=== PATIENT | male | born 1965 | race Caucasian/White ===

== ENCOUNTER 2019-07-29 11:13 | Emergency (ER) | payer MEDICAID, OTHER ==
[~2019-07-29] VITALS: Ht 167.6 cm; Wt 61.8 kg
[~2019-07-29 11:13] MED LIST: ESOM40CA PO; NO HOME MEDS
[2019-07-29] MEDS ORDERED: TETanus/Pertussis (Acell)/Diphther VAC/PF (Tdap-Adult) 0.5ml syringe IMVAC ONE (12:45)
== END 2019-07-29 13:42 | disposition home or self-care (01) ==
LOC: ER 11:13
DX: S71.112A Laceration without foreign body, left thigh, initial encounter (principal); I10 Essential (primary) hypertension; Z90.49 Acquired absence of other specified parts of digestive tract; Z79.899 Other long term (current) drug therapy; W26.8XXA Contact with other sharp object(s), not elsewhere classified, initial encounter; Y93.89 Activity, other specified; Y92.89 Other specified places as the place of occurrence of the external cause; Y99.8 Other external cause status
CPT/HCPCS: 12002; 90471; 90715; 99283

== ENCOUNTER 2020-10-16 11:34 | Emergency (ER) | payer OTHER ==
[~2020-10-16] VITALS: Ht 167.6 cm; Wt 61.4 kg
[2020-10-16] MEDS ORDERED: LORazepam 2 mg/ml vial IV ONE (11:50)
[2020-10-16 12:03] LABS: BASOPHILS # (AUTO) 0.1 X10'3 (0-0.2); BASOPHILS % (AUTO) 0.6 % (0-1); EOSINOPHILS # (AUTO) 0.2 X10'3 (0-0.9); EOSINOPHILS % (AUTO) 2.5 % (0-6); HEMATOCRIT 44.1 % (42.0-52.0); HEMOGLOBIN 15.4 g/dl (14.0-17.9); LYMPHOCYTES # (AUTO) 2.8 X10'3 (1.1-4.8); LYMPHOCYTES % (AUTO) 29.2 % (21-51); MEAN CORPUSCULAR HEMOGLOBIN 31.8 PG (27.0-31.0); MEAN CORPUSCULAR VOLUME 90.8 FL (78-98); MEAN PLATELET VOLUME 6.8 FL (7.4-10.4); MONOCYTES # (AUTO) 1.1 X10'3 (0-0.9); MONOCYTES % (AUTO) 11.4 % (2-12); NEUTROPHILS # (AUTO) 5.4 X10'3 (1.8-7.7); NEUTROPHILS % (AUTO) 56.3 % (42-75); PLATELET COUNT 282 X10'3 (140-440); RED BLOOD COUNT 4.85 X10'6 (4.70-6.10); RED CELL DISTRIBUTION WIDTH 14.1 % (11.5-14.5); WHITE BLOOD COUNT 9.5 X10'3 (4.5-11.0)
[2020-10-16] MEDS ORDERED: nitroGLYCERIN 0.4mg SUBLingual tab SL PRN ×2 (12:15→14:00)
[2020-10-16] MEDS ORDERED: aspirin 325mg tablet PO ONE (12:15)
[2020-10-16 12:18] LABS: ALANINE AMINOTRANSFERASE 23 U/L (12-78); ALBUMIN 3.9 G/DL (3.4-5.0); ALBUMIN/GLOBULIN RATIO 1.1 (1.1-1.5); ALKALINE PHOSPHATASE 81 IU/L (46-116); ANION GAP 10 (8-16); ASPARTATE AMINO TRANSFERASE 27 U/L (10-37); BILIRUBIN,TOTAL 0.4 MG/DL (0.1-1.0); BLOOD UREA NITROGEN 19 MG/DL (7-18); CHLORIDE 104 MMOL/L (99-107); CREATININE 1.12 MG/DL (0.60-1.10); GLUCOSE 90 MG/DL (70-104); SODIUM 140 MMOL/L (135-145); TOTAL CARBON DIOXIDE 25.7 MMOL/L (24-32); TOTAL PROTEIN 7.5 G/DL (6.4-8.2); eGFR 69 ML/MIN
[2020-10-16 13:56] VITALS: BP 148/85
[2020-10-16] MEDS ORDERED: acetaminophen 325mg tablet PO PRN ×2 (14:00)
[2020-10-16] MEDS ORDERED: morphine 2 MG/ML inj. syringe IV PRN ×2 (14:00)
[2020-10-16] MEDS ORDERED: magnesium hydroxide 30ml (MOM) UD suspension PO PRN (14:00)
[2020-10-16] MEDS ORDERED: ondansetron/PF 4mg/2ml inj IV PRN (14:00)
[2020-10-16] MEDS ORDERED: mag hydrox/Alum hydrox/simeth 30ml oral suspension PO PRN (14:00)
[2020-10-16] MEDS ORDERED: metoprolol tartrate 25mg tablet PO SCH (20:00)
[2020-10-17] MEDS ORDERED: aspirin 81mg tablet.DR PO SCH (08:00)
== END 2020-10-16 14:25 | disposition left against medical advice (07) ==
LOC: ER 11:35 → UNDOADMOB 13:56 → ED HOLD 13:56 → UNDODISOB 14:25 → ER 14:25
DX: R07.89 Other chest pain (principal); M79.601 Pain in right arm; F17.200 Nicotine dependence, unspecified, uncomplicated; Z90.49 Acquired absence of other specified parts of digestive tract; Z72.89 Other problems related to lifestyle; Z88.1 Allergy status to other antibiotic agents
CPT/HCPCS: 36415; 71045; 80053; 83880; 84484; 85025; 93005; 99285; G0378

== ENCOUNTER 2021-04-24 11:19 | Emergency (ER) | payer MEDICAID ==
[~2021-04-24] VITALS: Ht 165.1 cm; Wt 65.9 kg
[~2021-04-24 11:19] MED LIST changes: +ASPI-611 PO; +CLOP75TA34 OGT; +COR3.125T PO; -ESOM40CA PO; +LISI10TA27 PO; +NITR0.4T51 SL; -NO HOME MEDS; +NOR5T OGT
[2021-04-24 12:06] LABS: BASOPHILS % (AUTO) 0.5 % (0-1); EOSINOPHILS # (AUTO) 0.3 X10'3 (0-0.9); EOSINOPHILS % (AUTO) 3.9 % (0-6); HEMATOCRIT 40.9 % (42.0-52.0); HEMOGLOBIN 14.6 g/dl (14.0-17.9); LYMPHOCYTES # (AUTO) 2.6 X10'3 (1.1-4.8); LYMPHOCYTES % (AUTO) 38.3 % (21-51); MEAN CORPUSCULAR HEMOGLOBIN 32.1 PG (27.0-31.0); MEAN CORPUSCULAR HGB CONC 35.6 g/dL (33.0-36.5); MEAN CORPUSCULAR VOLUME 90.1 FL (78-98); MEAN PLATELET VOLUME 6.6 FL (7.4-10.4); MONOCYTES % (AUTO) 14.7 % (2-12); NEUTROPHILS # (AUTO) 2.9 X10'3 (1.8-7.7); NEUTROPHILS % (AUTO) 42.6 % (42-75); PLATELET COUNT 308 X10'3 (140-440); RED BLOOD COUNT 4.54 X10'6 (4.70-6.10); RED CELL DISTRIBUTION WIDTH 13.4 % (11.5-14.5); WHITE BLOOD COUNT 6.7 X10'3 (4.5-11.0)
[2021-04-24 12:17] LABS: ALANINE AMINOTRANSFERASE 30 U/L (12-78); ALBUMIN 4.2 G/DL (3.4-5.0); ALBUMIN/GLOBULIN RATIO 1.2 (1.1-1.5); ALKALINE PHOSPHATASE 69 IU/L (46-116); ANION GAP 10 (8-16); ASPARTATE AMINO TRANSFERASE 20 U/L (10-37); BILIRUBIN,TOTAL 0.6 MG/DL (0.1-1.0); BLOOD UREA NITROGEN 23 MG/DL (7-18); BUN/CREATININE RATIO 20.5 (5.4-32.0); CALCIUM 9.2 MG/DL (8.5-10.1); CHLORIDE 103 MMOL/L (99-107); CREATININE 1.12 MG/DL (0.60-1.10); GLUCOSE 92 MG/DL (70-104); POTASSIUM 4.8 MMOL/L (3.5-5.1); SODIUM 140 MMOL/L (135-145); TOTAL PROTEIN 7.7 G/DL (6.4-8.2); eGFR 68 ML/MIN
[2021-04-24 15:30] LABS: CLARITY,URINE CLEAR (Clear); COLOR,URINE YELLOW (Yellow); GLUCOSE, URINE NEGATIVE (Neg); KETONES,URINE NEGATIVE (Neg); LEUKOCYTE ESTERASE ,URINE NEGATIVE (Neg); NITRITES, URINE NEGATIVE (Neg); PH,URINE 5.5 (4.8-8.0); PROTEIN,URINE NEGATIVE (Neg); UROBILINOGEN,URINE 0.2 E.U/dL (0.2-1.0)
[2021-04-24 15:35] LABS: OCCULT BLOOD,URINE TRACE-LYSED (Neg)
[2021-04-24 15:43] LABS: UA COLLECTION TYPE STRAIGHT CATH
[2021-04-24 15:48] VITALS: BP 137/90
[2021-04-24 15:51] LABS: BACTERIA,URINE FEW /HPF (Neg); RBC,URINE 0-2 /HPF (0-2); SQUAMOUS EPITHELIAL CELL,UR FEW /LPF (FEW); WBC,URINE 0-4 /HPF (0-4)
[2021-04-26] MEDS ORDERED: LIDOcaine 1% W/epiNEPHrine 1:100,000 20ml vial IJ ONE (12:20)
[2021-04-26] MEDS ORDERED: TETanus/Pertussis (Acell)/Diphther VAC/PF (Tdap-Adult) 0.5ml syringe IMVAC ONE (12:20)
== END 2021-04-24 15:49 | disposition home or self-care (01) ==
LOC: ER 11:20
DX: R07.89 Other chest pain (principal); I10 Essential (primary) hypertension; M79.601 Pain in right arm; M54.2 Cervicalgia; I25.10 Atherosclerotic heart disease of native coronary artery without angina pectoris; I25.2 Old myocardial infarction; F17.200 Nicotine dependence, unspecified, uncomplicated; Z90.49 Acquired absence of other specified parts of digestive tract; Z98.890 Other specified postprocedural states; Z72.89 Other problems related to lifestyle; Z79.82 Long term (current) use of aspirin; Z79.899 Other long term (current) drug therapy
CPT/HCPCS: 36415; 71045; 80053; 81001; 83880; 84484; 85025; 93005; 99285

== ENCOUNTER 2023-08-24 10:34 | Outpatient (CLI) | payer BC, OTHER ==
[~2023-08-24] VITALS: Ht 162.6 cm; Wt 66.7 kg
[~2023-08-24 10:34] MED LIST changes: +ATOR20TA66 PO
[2023-08-24 10:56] LABS: ABG BASE EXCESS -3.1 mmol/L (-2.0-2.0); ABG HCO3 20.4 mmol/L (22.0-26.0); ABG PCO2 (T) 32.4 mmHg (35.0-48.0); ABG PH (T) 7.418 (7.340-7.440); ABG PO2 (T) 94.6 mmHg (75.0-100.0); ALLEN'S TEST POSITIVE; FCOHb 0.1 % (0.0-3.9); FMetHb 0.1 % (0.0-1.5); FO2Hb 96.8 % (94-97); MODE ROOM AIR; TOTAL HEMOGLOBIN 14.3 G/dl (14.0-17.9)
[2023-08-24] MEDS: albuterol 2.5 MG/3 ML nebule NEB ONE (11:32)
[2023-08-24 11:39] VITALS: PULSE 65; RESP 16; O2SAT 97
== END 2023-08-24 23:59 | disposition home or self-care (01) ==
LOC: RT 10:34
PROVIDERS: ATTEND Internal Medicine Cardiovascular Disease
DX: J44.9 Chronic obstructive pulmonary disease, unspecified (principal); R94.2 Abnormal results of pulmonary function studies; R05.9 Cough, unspecified; R06.02 Shortness of breath
CPT/HCPCS: 36600; 82803; 85018; 94060; 94727; 94729; 94760

== ENCOUNTER 2024-03-11 08:18 | Inpatient (IN) | payer BC ==
[2024-03-11] VITALS (9 sets, daily range): BP systolic 128–179; BP diastolic 59–94; PULSE 61–89; RESP 13–20; TEMP 96.6–97; O2SAT 96–100
[~2024-03-11] VITALS: Ht 167.6 cm; Wt 64.0 kg
[2024-03-11] MEDS: aspirin 81mg tab.chew PO ONE (08:58)
[2024-03-11] MEDS: morphine 2 MG/ML inj. syringe IV ONE (09:00)
[2024-03-11 09:08] LABS: BASOPHILS % (AUTO) 0.5 % (0-1); EOSINOPHILS # (AUTO) 0.2 X10'3 (0-0.9); EOSINOPHILS % (AUTO) 2.6 % (0-6); HEMATOCRIT 40.2 % (42.0-52.0); HEMOGLOBIN 13.7 g/dl (14.0-17.9); LYMPHOCYTES % (AUTO) 23.1 % (21-51); MEAN CORPUSCULAR HEMOGLOBIN 30.9 PG (27.0-31.0); MEAN CORPUSCULAR HGB CONC 34.1 g/dL (33.0-36.5); MEAN CORPUSCULAR VOLUME 90.7 FL (78-98); MEAN PLATELET VOLUME 7.3 FL (7.4-10.4); MONOCYTES # (AUTO) 1.2 X10'3 (0-0.9); MONOCYTES % (AUTO) 13.9 % (2-12); NEUTROPHILS # (AUTO) 5.2 X10'3 (1.8-7.7); NEUTROPHILS % (AUTO) 59.9 % (42-75); PLATELET COUNT 293 X10'3 (140-440); RED BLOOD COUNT 4.43 X10'6 (4.70-6.10); RED CELL DISTRIBUTION WIDTH 14.2 % (11.5-14.5); WHITE BLOOD COUNT 8.6 X10'3 (4.5-11.0)
[2024-03-11 09:27] LABS: ALANINE AMINOTRANSFERASE 24 U/L (12-78); ALBUMIN 3.8 G/DL (3.4-5.0); ALKALINE PHOSPHATASE 49 IU/L (46-116); ANION GAP 10 (8-16); ASPARTATE AMINO TRANSFERASE 27 U/L (10-37); BILIRUBIN,TOTAL 0.4 MG/DL (0.1-1.0); BLOOD UREA NITROGEN 25 MG/DL (7-18); BUN/CREATININE RATIO 16.9 (10.0-20.0); CALCIUM 9.2 MG/DL (8.5-10.1); CHLORIDE 104 MMOL/L (99-107); CREATININE 1.48 MG/DL (0.60-1.10); GLUCOSE 106 MG/DL (70-104); POTASSIUM 4.2 MMOL/L (3.5-5.1); SODIUM 136 MMOL/L (135-145); TOTAL CARBON DIOXIDE 21.9 MMOL/L (24-32); TOTAL PROTEIN 7.7 G/DL (6.4-8.2); eCRCL 50 ML/MIN; eGFR 49 ML/MIN
[2024-03-11 09:35] LABS: PRO BRAIN NATRIURETIC PEPTIDE 1610 PG/ML (0-125)
[2024-03-11] MEDS: nitroGLYCERIN 0.4mg SUBLingual tab SL PRN (10:08)
[2024-03-11] MEDS: morphine 4 MG/ML inj SYRINge IV ONE (10:46)
[2024-03-11] MEDS ORDERED: morphine 2 MG/ML inj. syringe IV PRN ×2 (11:00)
[2024-03-11] MEDS ORDERED: magnesium sulf-water 4G/100mL 100 ML IV PRN (11:00)
[2024-03-11] MEDS ORDERED: magnesium Cl slow-release 64mg tablet PO PRN (11:00)
[2024-03-11] MEDS ORDERED: potassium Cl 20 mEq SR tablet PO PRN ×2 (11:00)
[2024-03-11] MEDS ORDERED: ondansetron/PF 4mg/2ml inj IV PRN (11:00)
[2024-03-11] MEDS ORDERED: acetaminophen 325mg tablet PO PRN ×2 (11:00)
[2024-03-11] MEDS ORDERED: potassium Cl 40MEQ/1/2NS 520ml 520 ML IV PRN (11:00)
[2024-03-11] MEDS ORDERED: magnesium sulf-water 2g/50mL 50 ML IV PRN (11:00)
[2024-03-11] MEDS: normal saline 1000ml 1,000 ML IV SCH (11:14)
[2024-03-11] MEDS ORDERED: aminophylline inj. 0 ML IV ONE (13:30)
[2024-03-11] MEDS: regadenoson 0.4mg/5ml syringe IV ONE (13:32)
[2024-03-11] MEDS ORDERED: LISI20TA28 PO (17:20)
[2024-03-11] MEDS ORDERED: CARV6.253 PO (17:20)
[2024-03-11] MEDS ORDERED: DOCU-148 PO (17:24)
[2024-03-11] MEDS ORDERED: FISH1CAP15 PO (17:24)
[2024-03-11] MEDS ORDERED: nitroGLYCERIN 0.4mg SUBLingual tab SL PRN (17:55)
[2024-03-11] MEDS: HYDROcodone/acetaminophen 10/325mg tab PO PRN (17:56)
[2024-03-11] MEDS: heparin, porcine 5000 units/ml vial SQ SCH (20:24)
[2024-03-11] MEDS: lisinopril 20mg tablet PO SCH (20:24)
[2024-03-11] MEDS: carvedilol 6.25mg tablet PO SCH (20:24)
[2024-03-11] MEDS: cyclobenzaprine 10mg tablet PO ONE (22:40)
[2024-03-12] VITALS (18 sets, daily range): BP systolic 102–163; BP diastolic 64–110; PULSE 79–160; RESP 14–20; TEMP 97.2–98; O2SAT 94–99
[2024-03-12] MEDS: pantoprazole 40mg Tablet.DR PO SCH (07:30)
[2024-03-12] MEDS ORDERED: LIDOcaine 1% 30ml preserv. free vial ONE (09:07)
[2024-03-12] MEDS ORDERED: heparin 1,000unit/ml 10ml vial 0 ML ONE (09:08)
[2024-03-12] MEDS ORDERED: midazolam 1 mg/ML 2ml injection ONE ×2 (09:08→10:12)
[2024-03-12] MEDS ORDERED: iohexol 350MG/ML 100ml bottle IV ONE (09:08)
[2024-03-12] MEDS ORDERED: iohexol 350 MG/ML 50ML vial IV ONE (09:08)
[2024-03-12] MEDS ORDERED: fentaNYL/PF 50MCG/1 ML 2ML syringe ONE (09:08)
[2024-03-12] MEDS ORDERED: heparin 25,000 UNIT/250ml bag 250 ML IV ONE (09:24)
[2024-03-12 09:31] LABS: BASOPHILS % (AUTO) 0.5 % (0-1); EOSINOPHILS # (AUTO) 0.2 X10'3 (0-0.9); EOSINOPHILS % (AUTO) 1.9 % (0-6); HEMATOCRIT 43.6 % (42.0-52.0); HEMOGLOBIN 14.7 g/dl (14.0-17.9); LYMPHOCYTES # (AUTO) 2.3 X10'3 (1.1-4.8); LYMPHOCYTES % (AUTO) 24.3 % (21-51); MEAN CORPUSCULAR HEMOGLOBIN 30.9 PG (27.0-31.0); MEAN CORPUSCULAR HGB CONC 33.8 g/dL (33.0-36.5); MEAN CORPUSCULAR VOLUME 91.2 FL (78-98); MEAN PLATELET VOLUME 7.3 FL (7.4-10.4); MONOCYTES # (AUTO) 1.3 X10'3 (0-0.9); MONOCYTES % (AUTO) 13.3 % (2-12); NEUTROPHILS # (AUTO) 5.7 X10'3 (1.8-7.7); PLATELET COUNT 291 X10'3 (140-440); RED BLOOD COUNT 4.78 X10'6 (4.70-6.10); RED CELL DISTRIBUTION WIDTH 14.1 % (11.5-14.5); WHITE BLOOD COUNT 9.5 X10'3 (4.5-11.0)
[2024-03-12 09:40] LABS: ALANINE AMINOTRANSFERASE 24 U/L (12-78); ALBUMIN 3.6 G/DL (3.4-5.0); ALBUMIN/GLOBULIN RATIO 0.9 (1.1-1.5); ALKALINE PHOSPHATASE 38 IU/L (46-116); ANION GAP 9 (8-16); ASPARTATE AMINO TRANSFERASE 30 U/L (10-37); BILIRUBIN,TOTAL 0.6 MG/DL (0.1-1.0); BLOOD UREA NITROGEN 21 MG/DL (7-18); BUN/CREATININE RATIO 16.7 (10.0-20.0); CHLORIDE 104 MMOL/L (99-107); CREATINE KINASE 257 U/L (39-308); CREATININE 1.26 MG/DL (0.60-1.10); POTASSIUM 4.1 MMOL/L (3.5-5.1); SODIUM 136 MMOL/L (135-145); TOTAL CARBON DIOXIDE 22.8 MMOL/L (24-32); TOTAL PROTEIN 7.6 G/DL (6.4-8.2); eCRCL 58 ML/MIN; eGFR 59 ML/MIN
[2024-03-12] MEDS: aspirin 81mg, enteric-coated 1 TAB TABLET.DR PO SCH (09:40)
[2024-03-12 09:44] LABS: GLUCOSE 93 MG/DL (70-104)
[2024-03-12] MEDS ORDERED: hydrALAZINE 20mg/ml inj. ONE (10:20)
[2024-03-12] MEDS: HYDROcodone/acetaminophen 5mg/325mg tablet PO PRN (12:49)
[2024-03-12] MEDS: hyDRALAzine 10mg tablet PO PRN (13:41)
[2024-03-12] MEDS: tamsulosin 0.4mg capsule PO ONE (16:20)
[2024-03-12] MEDS: diltiazem-NS 100mg/100ml 100 ML IV SCH (19:17)
[2024-03-12] MEDS ORDERED: tamsulosin 0.4mg capsule PO SCH (21:00)
[2024-03-13 02:00] VITALS: BP 92/56; PULSE 99; RESP 24; TEMP 97.9; O2SAT 98
[2024-03-13 06:00] VITALS: BP 97/69; PULSE 73; RESP 16; TEMP 97.3; O2SAT 98
[2024-03-13 06:51] LABS: BASOPHILS % (AUTO) 0.4 % (0-1); EOSINOPHILS # (AUTO) 0.2 X10'3 (0-0.9); EOSINOPHILS % (AUTO) 2.6 % (0-6); HEMATOCRIT 41.3 % (42.0-52.0); HEMOGLOBIN 13.9 g/dl (14.0-17.9); LYMPHOCYTES % (AUTO) 26.6 % (21-51); MEAN CORPUSCULAR HEMOGLOBIN 30.5 PG (27.0-31.0); MEAN CORPUSCULAR HGB CONC 33.6 g/dL (33.0-36.5); MEAN CORPUSCULAR VOLUME 90.9 FL (78-98); MEAN PLATELET VOLUME 7.3 FL (7.4-10.4); MONOCYTES # (AUTO) 1.1 X10'3 (0-0.9); MONOCYTES % (AUTO) 14.6 % (2-12); NEUTROPHILS # (AUTO) 4.3 X10'3 (1.8-7.7); NEUTROPHILS % (AUTO) 55.8 % (42-75); PLATELET COUNT 281 X10'3 (140-440); RED BLOOD COUNT 4.55 X10'6 (4.70-6.10); RED CELL DISTRIBUTION WIDTH 14.1 % (11.5-14.5); WHITE BLOOD COUNT 7.7 X10'3 (4.5-11.0)
[2024-03-13 07:13] LABS: ALANINE AMINOTRANSFERASE 18 U/L (12-78); ALBUMIN 3.2 G/DL (3.4-5.0); ALBUMIN/GLOBULIN RATIO 0.8 (1.1-1.5); ALKALINE PHOSPHATASE 34 IU/L (46-116); ANION GAP 6 (8-16); ASPARTATE AMINO TRANSFERASE 22 U/L (10-37); BILIRUBIN,TOTAL 0.6 MG/DL (0.1-1.0); BLOOD UREA NITROGEN 20 MG/DL (7-18); BUN/CREATININE RATIO 15.9 (10.0-20.0); CALCIUM 8.5 MG/DL (8.5-10.1); CHLORIDE 101 MMOL/L (99-107); CREATININE 1.26 MG/DL (0.60-1.10); GLUCOSE 119 MG/DL (70-104); SODIUM 133 MMOL/L (135-145); TOTAL CARBON DIOXIDE 26.3 MMOL/L (24-32); eCRCL 58 ML/MIN; eGFR 59 ML/MIN
[2024-03-13 08:00] VITALS: RESP 16; O2SAT 98
[2024-03-13 11:00] VITALS: BP 104/71; PULSE 92; RESP 17; TEMP 97.7; O2SAT 99
[2024-03-13 11:29] VITALS: RESP 14
== END 2024-03-13 12:30 | disposition home or self-care (01) | DRG 282 ==
LOC: ER 08:19 → ED HOLD 11:04 → PCU 3S 19:45
PROVIDERS: ADMIT Internal Medicine; ATTEND Internal Medicine
PROC: 4A02XM4 Measurement of Cardiac Total Activity, External Approach (ICD-10-PCS; 2024-03-11)
PROC: 3E033HZ Introduction of Radioactive Substance into Peripheral Vein, Percutaneous Approach (ICD-10-PCS; 2024-03-11)
PROC: 4A023N7 Measurement of Cardiac Sampling and Pressure, Left Heart, Percutaneous Approach (ICD-10-PCS; principal; 2024-03-12)
PROC: B2111ZZ Fluoroscopy of Multiple Coronary Arteries using Low Osmolar Contrast (ICD-10-PCS; 2024-03-12)
PROC: B2151ZZ Fluoroscopy of Left Heart using Low Osmolar Contrast (ICD-10-PCS; 2024-03-12)
PROC: B41F1ZZ Fluoroscopy of Right Lower Extremity Arteries using Low Osmolar Contrast (ICD-10-PCS; 2024-03-12)
DX: I25.110 Atherosclerotic heart disease of native coronary artery with unstable angina pectoris (principal); I21.09 ST elevation (STEMI) myocardial infarction involving other coronary artery of anterior wall; I12.9 Hypertensive chronic kidney disease with stage 1 through stage 4 chronic kidney disease, or unspecified chronic kidney disease; F41.1 Generalized anxiety disorder; E11.22 Type 2 diabetes mellitus with diabetic chronic kidney disease; N18.30 Chronic kidney disease, stage 3 unspecified; I16.0 Hypertensive urgency; R33.9 Retention of urine, unspecified; I48.91 Unspecified atrial fibrillation; I25.5 Ischemic cardiomyopathy; I25.2 Old myocardial infarction; Z79.82 Long term (current) use of aspirin; Z79.01 Long term (current) use of anticoagulants; Z79.899 Other long term (current) drug therapy; Z83.3 Family history of diabetes mellitus; Z90.49 Acquired absence of other specified parts of digestive tract; Z95.5 Presence of coronary angioplasty implant and graft
CPT/HCPCS: 36415; 71045; 78452; 80053; 82550; 83880; 84145; 84484; 85025; 87081; 93005; 93017; 93306; 93458; 96374; 99152; 99153; 99285; A4340; A4615; A6258; A6590; A9500; C1760; G0378; J0280; J0360; J1644; J2250; J2270; J2785; J3010; J3490; J7030; J7040; Q9967